=== PATIENT | female | born 1975 | race African-American/Black ===

== ENCOUNTER 2019-02-04 06:25 | Inpatient (IN) ==
[2019-02-02] MEDS: D5 1/2 NS 1000 ML 1,000 ML IV SCH (14:00)
[2019-02-04] MEDS ORDERED: ANCEF 1 GRAM IV PREMIX* 1 G/50 ML BAG IV ONE (06:32)
[2019-02-04] MEDS ORDERED: D5 1/2 NS 1000 ML 1,000 ML ONE (06:33)
[2019-02-04 06:56] VITALS: BMI 36.6
[2019-02-04] MEDS ORDERED: FENTANYL INJ 250 mcg ONE (07:20)
[2019-02-04] MEDS: D5 1/2 NS 1000 ML 1,000 ML IV SCH ×3 (07:40→19:23)
[2019-02-04] MEDS ORDERED: ANCEF VIAL 1 GRAM IVP ONE (07:40)
[2019-02-04 07:47] LABS: BILIRUBIN,URINE NEGATIVE (NEGATIVE); BLOOD/HEMOGLOBIN,URINE 1+ (NEGATIVE); GLUCOSE, URINE NEGATIVE (NEGATIVE); KETONES,URINE NEGATIVE (NEGATIVE); LEUKOCYTE ESTERASE ,URINE NEGATIVE (NEGATIVE); NITRITES,URINE NEGATIVE (NEGATIVE); PROTEIN,URINE NEGATIVE (NEGATIVE); UROBILINOGEN,URINE NORMAL (NORMAL)
[2019-02-04 07:56] LABS: APPEARANCE,URINE CLEAR (CLEAR); COLOR,URINE YELLOW (YELLOW)
[2019-02-04] MEDS ORDERED: LR 1000 ML IV 2,000 ML ONE (07:57)
[2019-02-04 07:58] LABS: BACTERIA,URINE NEGATIVE /HPF (NEGATIVE); RBC,URINE NONE SEEN /HPF (NONE SEEN); SQUAMOUS EPITHELIAL CELL,UR RARE /HPF (NEGATIVE)
[2019-02-04] MEDS ORDERED: NS 1000 ML 1,000 ML ONE ×2 (08:27→08:59)
[2019-02-04] MEDS ORDERED: NS 100 ML IV 100 ML ONE (08:47)
[2019-02-04] MEDS ORDERED: SUPRANE ONE (08:56)
[2019-02-04] MEDS ORDERED: NORCURON INJ 10 MG VIAL ONE (08:56)
[2019-02-04] MEDS ORDERED: NEOSTIGMINE INJ ONE (08:56)
[2019-02-04] MEDS ORDERED: ROBINUL ONE (08:56)
[2019-02-04] MEDS ORDERED: LTA KIT LIDOCAINE 4% ONE (08:56)
[2019-02-04] MEDS ORDERED: ZOFRAN INJ 4 MG VIAL ONE (08:56)
[2019-02-04] MEDS ORDERED: DIPRIVAN VIAL ONE (08:56)
[2019-02-04] MEDS ORDERED: VERSED ONE (08:56)
[2019-02-04] MEDS ORDERED: QUELICIN (OR ANECTINE) ONE (08:56)
[2019-02-04 09:04] LABS: HEMOGLOBIN 5.4 g/dL (12.0-16.0)
[2019-02-04] MEDS ORDERED: NS IRRIGATION 1000 ML ONE (09:53)
[2019-02-04] MEDS ORDERED: NS IRRIGATION 500 ML ONE (09:53)
[2019-02-04] MEDS ORDERED: STERILE WATER IRRIGATION ONE (09:53)
[2019-02-04] MEDS ORDERED: REGLAN INJ 10 MG VIAL IVP PRN (10:12)
[2019-02-04] MEDS ORDERED: PHENERGAN INJ 25 MG IM PRN (10:12)
[2019-02-04] MEDS ORDERED: ZOFRAN INJ 4 MG VIAL IVP PRN ×2 (10:12→10:56)
[2019-02-04] MEDS ORDERED: BENADRYL INJ 50 MG VIAL IVP PRN ×2 (10:12→10:56)
[2019-02-04] MEDS ORDERED: DILAUDID INJ ONE (10:14)
[2019-02-04] MEDS: DILAUDID INJ IVP PRN ×4 (10:16→10:45)
[2019-02-04] MEDS ORDERED: TORADOL 30 MG VIAL IVP PRN (10:56)
[2019-02-04] MEDS ORDERED: MORPHINE SULFATE PCA 30 MG IVP PRN (10:56)
[2019-02-04 11:22] LABS: HEMATOCRIT 27.1 % (36.0-47.0); HEMOGLOBIN 8.9 g/dL (12.0-16.0)
[2019-02-04] MEDS ORDERED: MORPHINE SULFATE PCA 30 MG ONE (11:55)
[2019-02-04 17:16] LABS: HEMATOCRIT 29.4 % (36.0-47.0); HEMOGLOBIN 9.4 g/dL (12.0-16.0)
[2019-02-04] MEDS ORDERED: PHENERGAN INJ 25 MG IM ONE (21:53)
[2019-02-04] MEDS: PHENERGAN INJ 25 MG IM PRN (22:10)
[2019-02-05] MEDS ORDERED: MAALOX or MYLANTA PO PRN (00:25)
[2019-02-05] MEDS: D5 1/2 NS 1000 ML 1,000 ML IV SCH ×2 (00:27→04:43)
[2019-02-05] MEDS ORDERED: MAALOX or MYLANTA ONE (00:31)
[2019-02-05] MEDS ORDERED: PEPCID TAB 20 MG PO ONE (00:40)
[2019-02-05] MEDS ORDERED: PEPCID TAB 20 MG ONE (00:42)
[2019-02-05] MEDS: PHENERGAN INJ 25 MG IM PRN (03:15)
[2019-02-05 05:36] LABS: BASOPHILS % (AUTO) 0.1 % (0.2-1.0); HEMATOCRIT 21.7 % (36.0-47.0); HEMOGLOBIN 7.3 g/dL (12.0-16.0); LYMPHOCYTES % (AUTO) 8.4 % (21.0-51.0); MEAN CORPUSCULAR HEMOGLOBIN 23.4 pg (27.0-34.0); MEAN CORPUSCULAR HGB CONC 33.6 g/dL (33.0-35.0); MEAN CORPUSCULAR VOLUME 69.7 fL (80.0-100.0); MEAN PLATELET VOLUME 9.5 fL (7.4-11.0); MONOCYTES # (AUTO) 0.9 x10^3/uL (0.3-0.8); MONOCYTES % (AUTO) 7.4 % (0.0-13.0); NEUTROPHILS # (AUTO) 9.9 x10^3/uL (2.2-4.8); NEUTROPHILS % (AUTO) 84.1 % (42.0-75.0); PLATELET COUNT 239 X10^3/uL (150.0-450.0); RED BLOOD COUNT 3.11 X10^6/uL (3.5-5.4); RED CELL DISTRIBUTION WIDTH 30.1 % (11.6-16.5); WHITE BLOOD COUNT 11.8 X10^3/uL (3.6-10.0)
[2019-02-05 06:02] LABS: BLOOD UREA NITROGEN 8 mg/dL (7-18); CALCIUM 7.5 mg/dL (8.5-10.1); CARBON DIOXIDE 25.3 mmol/L (21-32); CHLORIDE 107 mmol/L (98-107); COR NA(FOR HYPERGLY) 140 mmol/L (136-145); CREATININE 0.73 mg/dL (0.55-1.02); SODIUM 139 mmol/L (136-145); eGFR NON BLACK RACES > 60 (>60)
[2019-02-05 06:25] LABS: PLATELET MORPHOLOGY COMMENT NORMAL (NORMAL)
[2019-02-05 06:26] LABS: ANISOCYTOSIS 3+; HYPOCHROMASIA 1+; MICROCYTOSIS 1+
[2019-02-05] MEDS ORDERED: ULTRAM PO PRN (07:56)
[2019-02-05] MEDS: COLACE CAP 100 MG PO SCH ×2 (09:29→21:30)
[2019-02-05] MEDS: MOTRIN TAB 800 MG PO PRN ×2 (12:01→22:19)
[2019-02-05] MEDS: BACTROBAN CREAM TOP SCH ×2 (14:08→21:30)
[2019-02-05] MEDS: FERROUS GLUCONATE PO SCH (17:17)
[2019-02-05] MEDS ORDERED: MYLICON TAB 80 MG CHEW PO ONE (18:15)
[2019-02-05] MEDS: MYLICON TAB 80 MG CHEW PO PRN ×2 (18:17→18:19)
[2019-02-06] MEDS: BACTROBAN CREAM TOP SCH (06:04)
[2019-02-06] MEDS: FERROUS GLUCONATE PO SCH (06:05)
[2019-02-06] MEDS: MYLICON TAB 80 MG CHEW PO PRN (06:05)
[2019-02-06] MEDS: D5 1/2 NS 1000 ML 1,000 ML IV SCH (06:46)
[2019-02-06] MEDS: MOTRIN TAB 800 MG PO PRN (07:39)
[2019-02-06 08:05] VITALS: BP 114/63
[2019-02-06] MEDS: COLACE CAP 100 MG PO SCH (08:05)
== END 2019-02-06 10:20 | disposition home or self-care (01) | DRG 743 ==
LOC: MED/SURG 06:25
PROVIDERS: ADMIT Specialist; ATTEND Specialist
DX: N92.5 Other specified irregular menstruation; D25.2 Subserosal leiomyoma of uterus; D50.0 Iron deficiency anemia secondary to blood loss (chronic)
CPT/HCPCS: 36415; 80048; 81001; 85014; 85018; 85025; 86850; 86900; 86901; 86922; A4216; A4222; P9016; J0330; J0690; J1170; J1885; J2250; J2271; J2405; J2550; J2704; J2710; J3010; J3490; J7030; J7050; J7120; S5010